=== PATIENT | male | born 1995 | race Caucasian/White ===

== ENCOUNTER 2024-03-29 23:16 | Emergency (ER) | payer MEDICAID ==
[~2024-03-29] VITALS: Ht 172.7 cm; Wt 70.8 kg
[2024-03-29 23:44] VITALS: BP 151/81; PULSE 92; RESP 16; TEMP 97.3; O2SAT 99
[2024-03-29] MEDS: IBUPROFEN 600 MG TAB PO ONE (23:48)
[2024-03-30] MEDS ORDERED: ACET-10509 PO (01:41)
[2024-03-30] MEDS ORDERED: IBUP-2213 PO (01:41)
[2024-03-30 01:59] VITALS: BP 151/81; PULSE 92; RESP 16; TEMP 97.3; O2SAT 99
== END 2024-03-30 01:59 | disposition home or self-care (01) ==
LOC: MED 23:16
DX: S62.316A Displaced fracture of base of fifth metacarpal bone, right hand, initial encounter for closed fracture (principal); Z79.899 Other long term (current) drug therapy; W18.30XA Fall on same level, unspecified, initial encounter; Y93.89 Activity, other specified; Y92.89 Other specified places as the place of occurrence of the external cause; Y99.8 Other external cause status
CPT/HCPCS: 73130; 99283